=== PATIENT | male | born 1940 | race Two or more races ===

== ENCOUNTER → 2020-11-06 | Outpatient (CLI) | payer MEDICARE, MEDICAID ==
[~2020-11-06] MED LIST: METF850T10 PO
== END | disposition home or self-care (01) ==
LOC: STAR 13:23
PROVIDERS: ATTEND Orthopaedic Surgery
DX: Z01.818 Encounter for other preprocedural examination (principal); M17.12 Unilateral primary osteoarthritis, left knee; I44.0 Atrioventricular block, first degree; Z20.822 Contact with and (suspected) exposure to COVID-19
CPT/HCPCS: 87635; 93005

== ENCOUNTER 2020-11-28 19:49 | Emergency (ER) | payer MEDICARE, MEDICAID ==
[~2020-11-28] VITALS: Ht 170.2 cm; Wt 68.0 kg
[2020-11-28] MEDS ORDERED: ONDANSETRON 2MG/ML, 2ML IVPush ONE (20:00)
[2020-11-28] MEDS ORDERED: SODIUM CHLORIDE FLUSH 10ML SYR IVF ONE (20:00)
[2020-11-28] MEDS ORDERED: SODIUM CHLORIDE 0.9% 1,000ML IVBOLUS ONE (20:00)
[2020-11-28] MEDS ORDERED: ONDANSETRON 2MG/ML, 2ML ONE (20:21)
[2020-11-28 20:25] LABS: BASOPHILS % (AUTO) 1 % (0-1); EOSINOPHILS % (AUTO) 2 % (1-7); LYMPHOCYTES % (AUTO) 9 % (22-44); MEAN CORPUSCULAR HEMOGLOBIN 32.6 pg (27.5-34.5); MEAN CORPUSCULAR HGB CONC 34.8 g/dL (33.2-36.2); MEAN PLATELET VOLUME 6.8 fL (7.4-10.4); MONOCYTES % (AUTO) 5 % (2-9); NEUTROPHILS % (AUTO) 84 % (42-75); PLATELET COUNT 431 x10^3/uL (130-400); RED BLOOD COUNT 4.12 x10^6/uL (4.38-5.82); RED CELL DISTRIBUTION WIDTH 14.4 % (9.4-14.8)
[2020-11-28 20:27] LABS: MD NO
[2020-11-28 20:36] LABS: ALANINE AMINOTRANSFERASE 15 U/L (12-78); ANION GAP 6 mmol/L (5-15); CALCIUM 9.1 mg/dL (8.5-10.1); CHLORIDE 92 mmol/L (98-107); CREATININE 1.15 mg/dL (0.7-1.3)
[2020-11-28 20:39] LABS: ALKALINE PHOSPHATASE 89 U/L (45-117); BILIRUBIN,TOTAL 0.9 mg/dL (0.2-1.0); TOTAL PROTEIN 8.4 g/dL (6.4-8.2); TROPONIN I < 0.015 ng/mL (0.000-0.045)
[2020-11-28 21:51] VITALS: BP 116/71
== END 2020-11-28 22:07 | disposition home or self-care (01) ==
LOC: ED 21:19
DX: N28.9 Disorder of kidney and ureter, unspecified (principal); E87.1 Hypo-osmolality and hyponatremia; I44.1 Atrioventricular block, second degree; R10.9 Unspecified abdominal pain; R51.9 Headache, unspecified; E11.9 Type 2 diabetes mellitus without complications; Z90.49 Acquired absence of other specified parts of digestive tract; Z79.899 Other long term (current) drug therapy
CPT/HCPCS: 36415; 70450; 71045; 80053; 84484; 85025; 93005; 96361; 96374; 99285; J2405; J7030